=== PATIENT | male | born 1960 | race Caucasian/White ===

== ENCOUNTER 2019-11-26 15:14 | Emergency (ER) | payer BC ==
[~2019-11-26] VITALS: Ht 190.5 cm; Wt 81.6 kg
--- NOTE | 2019-11-26 15:25 | NUR ---
Dr. Chavez at bedside for [facility]
[2019-11-26] MEDS ORDERED: LIDOCAINE HCL 1% 20 ML VIAL TP ONE (15:30)
[2019-11-26 16:52] VITALS: BP 132/81
== END 2019-11-26 16:46 | disposition home or self-care (01) ==
LOC: ER 15:16
DX: S61.207A Unspecified open wound of left little finger without damage to nail, initial encounter (principal); W31.2XXA Contact with powered woodworking and forming machines, initial encounter; Y92.89 Other specified places as the place of occurrence of the external cause
CPT/HCPCS: 12001; 73140; 99283; J3490; A4217; A4663